=== PATIENT | female | born 1950 | race Caucasian/White ===

== ENCOUNTER 2017-12-06 09:58 | Day surgery (SDC) | payer OTHER ==
[~2017-12-06 09:58] MED LIST: ALBU90OI INH; ASPI81EC PO; ATEN100 PO; ATEN50 PO; AZIT250 PO; BENZ100A PO; CIPR500 PO; CITA20 PO; CITRACEL PO; EZET10 PO; FURO20 PO; LEVSOD50 PO; LISI10 PO; LISI20 PO; MECL25 PO; METR500 PO; OMEP20ER PO; POTCHL10ER PO; POTCHL20ER PO; Prilosec Otc20 MG PO; RANI150 PO; RXHYDACE PO; SIME80CH PO; SPIR25 PO; STOOL SOFTENER PO; TRAZ100 PO; VENL150ER PO
[2017-12-26] MEDS ORDERED: ATOR10 PO (14:23)
[2017-12-26] MEDS ORDERED: ALLEGRA ALLERG180 MG PO (14:23)
[2017-12-26] MEDS ORDERED: MIRALAX17 GM PO (14:24)
[2017-12-26] MEDS ORDERED: COQ10-VIT E 101 EACH PO (14:24)
[2017-12-26] MEDS ORDERED: CHOL10002 PO (14:24)
[2017-12-26] MEDS ORDERED: IBUP600 PO (14:25)
[2017-12-26] MEDS ORDERED: Advair Hfa 230-12 GM (14:25)
[2017-12-26] MEDS ORDERED: ALEVAZOL56.7 GM TOP (14:26)
[2017-12-26] MEDS ORDERED: Voltaren100 GM TOP (14:26)
[2017-12-26] MEDS ORDERED: Betamethasone D15 G2 TOP (14:27)
[2017-12-26] MEDS ORDERED: JOCK ITCH15 GM TOP (14:28)
== END 2017-12-06 22:46 | disposition home or self-care (01) ==
LOC: MOI MAM 09:58 → EDSTATUS 10:30 → MOI MAM 10:30
PROC: 0HBT3ZX Excision of Right Breast, Percutaneous Approach, Diagnostic (ICD-10-PCS; principal; 2017-12-06)
DX: D05.11 Intraductal carcinoma in situ of right breast (principal)
CPT/HCPCS: 19081; 88305; 88360

== ENCOUNTER 2018-01-01 08:42 | Day surgery (SDC) | payer OTHER ==
[~2018-01-01 08:42] MED LIST changes: +ALEVAZOL56.7 GM TOP; +ALLEGRA ALLERG180 MG PO; +ATOR10 PO; +Advair Hfa 230-12 GM; +Betamethasone D15 G2 TOP; +CHOL10002 PO; +COQ10-VIT E 101 EACH PO; +IBUP600 PO; +JOCK ITCH15 GM TOP; +MIRALAX17 GM PO; +Voltaren100 GM TOP
== END 2018-01-01 23:01 | disposition home or self-care (01) ==
LOC: MOI MAM 08:42
PROC: BH00ZZZ Plain Radiography of Right Breast (ICD-10-PCS; principal; 2018-01-01)
DX: C50.811 Malignant neoplasm of overlapping sites of right female breast (principal); Z17.0 Estrogen receptor positive status [ER+]
CPT/HCPCS: 19281

== ENCOUNTER 2018-01-04 05:57 | Day surgery (SDC) | payer OTHER ==
[~2018-01-04] VITALS: Ht 160 cm; Wt 70.3 kg
== END 2018-01-04 22:46 | disposition home or self-care (01) ==
LOC: ORSCMMR 05:57 → ORD 07:30 → ORSCMMR 07:30
PROVIDERS: Surgery
PROC: 0HBT0ZZ Excision of Right Breast, Open Approach (ICD-10-PCS; principal; 2018-01-04 07:30)
DX: C50.811 Malignant neoplasm of overlapping sites of right female breast (principal); D05.11 Intraductal carcinoma in situ of right breast; Z17.0 Estrogen receptor positive status [ER+]; E78.00 Pure hypercholesterolemia, unspecified; I10 Essential (primary) hypertension; E05.90 Thyrotoxicosis, unspecified without thyrotoxic crisis or storm; M79.7 Fibromyalgia; I50.9 Heart failure, unspecified; Z79.899 Other long term (current) drug therapy
CPT/HCPCS: 88307; 88341; 88342; J0690; J2250; J2405; J3010; J7120

== ENCOUNTER → 2018-12-17 | Outpatient (CLI) | payer OTHER ==
[2018-12-17 14:05] LABS: Source, Urine Clean Catch
[2018-12-17 18:00] LABS: Appearance, Urine Clear (Clear); Bilirubin, Urine Neg (Neg); Blood, Urine Neg (Neg); Color, Urine Yellow (P-Yellow); Glucose Qualitative, Urine Neg (Neg); Ketones, Urine Neg (Neg); Leukocyte Esterase, Urine Neg (Neg); Nitrite, Urine Neg (Neg); Protein, Urine Neg (Neg); Urobilinogen, Urine NORM (Normal)
== END | disposition home or self-care (01) ==
LOC: LAB SHORT 14:04 → LAB SRC 14:04
PROVIDERS: Registered Nurse
DX: R82.90 Unspecified abnormal findings in urine (principal)
CPT/HCPCS: 81003

== ENCOUNTER 2021-07-15 09:45 | Day surgery (SDC) | payer OTHER ==
[~2021-07-15] VITALS: Ht 162.6 cm; Wt 75.4 kg
[2021-07-15] MEDS ORDERED: JARDIANCE25 MG PO (10:18)
--- NOTE | 2021-07-15 10:23 | NUR ---
07/15/21 1023 Maye Iniguez CALL LIGHT WITHIN REACH. PLEDGETT WITH TETRACAINE AT 1010
== END 2021-07-15 12:20 | disposition home or self-care (01) ==
LOC: ORSCSDS 09:45
PROVIDERS: Ophthalmology
PROC: 08RK3JZ Replacement of Left Lens with Synthetic Substitute, Percutaneous Approach (ICD-10-PCS; principal; 2021-07-15 11:00)
DX: H25.12 Age-related nuclear cataract, left eye (principal); I10 Essential (primary) hypertension; E11.9 Type 2 diabetes mellitus without complications; E03.9 Hypothyroidism, unspecified; Z79.899 Other long term (current) drug therapy; Z79.84 Long term (current) use of oral hypoglycemic drugs
CPT/HCPCS: 82947; J2001; J2250; J3010; J3301; J7040; V2632

== ENCOUNTER 2021-08-12 09:45 | Day surgery (SDC) | payer OTHER ==
[~2021-08-12] VITALS: Ht 162.6 cm; Wt 75.6 kg
[~2021-08-12 09:45] MED LIST changes: +JARDIANCE25 MG PO
== END 2021-08-12 11:24 | disposition home or self-care (01) ==
LOC: ORSCSDS 09:45
PROVIDERS: Ophthalmology
PROC: 08RJ3JZ Replacement of Right Lens with Synthetic Substitute, Percutaneous Approach (ICD-10-PCS; principal; 2021-08-12 11:30)
DX: H25.11 Age-related nuclear cataract, right eye (principal); I10 Essential (primary) hypertension; E11.9 Type 2 diabetes mellitus without complications; E03.9 Hypothyroidism, unspecified; Z79.899 Other long term (current) drug therapy
CPT/HCPCS: 82947; J2001; J2250; J3010; J3301; J7040; V2632

== ENCOUNTER 2022-03-04 06:17 | Day surgery (SDC) | payer OTHER ==
[~2022-03-04] VITALS: Ht 162.6 cm; Wt 74.8 kg
[2022-03-04] MEDS ORDERED: ANASTROZOLE1 M7 (06:49)
[2022-03-04] MEDS ORDERED: ESCI20 (06:50)
[2022-03-04] MEDS ORDERED: PRAM.125 (06:50)
[2022-03-04] MEDS ORDERED: SITA100T2 (06:50)
[2022-03-04] MEDS ORDERED: ATOR10 (06:50)
[2022-03-04] MEDS ORDERED: MONT10T (06:50)
[2022-03-04] MEDS ORDERED: INDO50 (06:51)
[2022-03-04] MEDS ORDERED: DOXE10 (06:51)
--- NOTE | 2022-03-04 08:50 | NUR ---
03/04/22 0850 Paula Molina PT TRANSFERRED TO SDU ON MUNA, ROSA CALLED-AWAITING XRAY WITH PT ON MUNA.
--- NOTE | 2022-03-04 09:30 | NUR ---
03/04/22 0930 Naa Méndez HEPARIN USED TO FLUSH MEDIPORT SYSTEM.
== END 2022-03-04 10:02 | disposition home or self-care (01) ==
LOC: ORSCSDS 06:17
PROVIDERS: Surgery
PROC: B547ZZA Ultrasonography of Left Subclavian Vein, Guidance (ICD-10-PCS; principal; 2022-03-04 07:30)
PROC: 05H633Z Insertion of Infusion Device into Left Subclavian Vein, Percutaneous Approach (ICD-10-PCS; principal; 2022-03-04 07:30)
DX: D05.11 Intraductal carcinoma in situ of right breast (principal); I10 Essential (primary) hypertension; K21.9 Gastro-esophageal reflux disease without esophagitis; E11.9 Type 2 diabetes mellitus without complications; E03.9 Hypothyroidism, unspecified; Z79.899 Other long term (current) drug therapy; F32.A Depression, unspecified; M79.7 Fibromyalgia
CPT/HCPCS: 77001; 82947; A9270; C1788; J0690; J1100; J1642; J2250; J2370; J2405; J2704; J3010

== ENCOUNTER 2022-03-08 16:59 | Emergency (ER) | payer OTHER ==
[~2022-03-08] VITALS: Ht 162.6 cm; Wt 74.4 kg
[~2022-03-08 16:59] MED LIST changes: +ANASTROZOLE1 M7; +ATOR10; +DOXE10; +ESCI20; +INDO50; +MONT10T; +PRAM.125; +SITA100T2
[2022-03-08 19:13] LABS: BASOPHILS ABSOLUTE AUTO 0.02 K/mm3 (0.00-0.23); BASOPHILS PERCENT AUTO 0 % (0-2); EOSINOPHILS ABSOLUTE AUTO 0.03 K/mm3 (0.00-0.68); EOSINOPHILS PERCENT AUTO 1 % (0-6); Hematocrit 40.7 % (33.0-51.0); IMMATURE GRAN ABSOLUTE AUTO 0.05 K/mm3 (0.00-0.10); IMMATURE GRAN PERCENT AUTO 1 % (0-1); LYMPHOCYTES ABSOLUTE AUTO 0.45 K/mm3 (0.84-5.20); LYMPHOCYTES PERCENT AUTO 7 % (21-46); MONOCYTES ABSOLUTE AUTO 0.07 K/mm3 (0.16-1.47); MONOCYTES PERCENT AUTO 1 % (4-13); Mean Corpuscular HGB Conc 31.9 g/dL (31.5-36.5); Mean Corpuscular Volume 94 fL (80-100); Mean Platelet Volume 9.9 fL (9.1-12.4); NEUTROPHILS ABSOLUTE AUTO 5.87 K/mm3 (1.96-9.15); NEUTROPHILS PERCENT AUTO 90 % (41-73); Platelet Count 198 K/mm3 (150-400); RDW Coefficient Variation 13.9 % (11.7-14.2); Red Blood Cell Count 4.34 M/mm3 (3.80-5.20); White Blood Cell Count 6.49 K/mm3 (4.00-11.30)
[2022-03-08 19:35] LABS: Bun/Creatinine Ratio 23.9 (12.0-20.0); Calcium, Blood 8.1 mg/dL (8.5-10.1); Creatinine, Blood 0.84 mg/dL (0.40-1.00); Potassium, Blood 4.9 mmol/L (3.5-5.5)
== END 2022-03-08 21:10 | disposition home or self-care (01) ==
LOC: ER 16:59
PROVIDERS: Student in an Organized Health Care Education/Training Program
DX: T43.591A Poisoning by other antipsychotics and neuroleptics, accidental (unintentional), initial encounter (principal); R09.02 Hypoxemia; I11.0 Hypertensive heart disease with heart failure; I50.9 Heart failure, unspecified; E78.5 Hyperlipidemia, unspecified; K21.9 Gastro-esophageal reflux disease without esophagitis; M19.90 Unspecified osteoarthritis, unspecified site; Z79.899 Other long term (current) drug therapy; Z88.5 Allergy status to narcotic agent; Z88.7 Allergy status to serum and vaccine; Z88.8 Allergy status to other drugs, medicaments and biological substances; Z91.011 Allergy to milk products; Y92.238 Other place in hospital as the place of occurrence of the external cause
CPT/HCPCS: 71046; 80048; 83735; 83880; 84484; 85025; 93005; 93010; J1642; J1940

== ENCOUNTER 2022-03-15 14:08 | Inpatient (IN) | payer OTHER ==
[~2022-03-15] VITALS: Ht 162.6 cm; Wt 73.9 kg
[~2022-03-15 14:08] MED LIST changes: +EUTHYROX50 MCG; -PRAM.125; +PRAM.125 PO; -Vitamin D1000 UNI1 PO
[2022-03-15 18:21] LABS: Source, Urine Clean Catch
[2022-03-15 18:24] LABS: Appearance, Urine Cloudy (Clear); Bilirubin, Urine Neg (Neg); Blood, Urine 3+ (Neg); Color, Urine Yellow (P-Yellow); Glucose Qualitative, Urine 3+ (Neg); Ketones, Urine Neg (Neg); Leukocyte Esterase, Urine 3+ (Neg); Nitrite, Urine Neg (Neg); Protein, Urine 2+ (Neg); Urobilinogen, Urine NORM (Normal)
[2022-03-15 18:43] LABS: Red Blood Cells, Urine TNTC /hpf (0-2); White Blood Cells, Urine TNTC /hpf (0-5)
[2022-03-15 18:44] LABS: Bacteria Many /hpf; Hyaline Casts 0-2 /lpf (0-2); Squamous Epithelial Cells Few /hpf (Few); WBC Cast 0-2 /lpf (0)
--- NOTE | 2022-03-15 22:01 | NUR ---
CARE ASSUMPTION: ASSUMED CARE FROM TENZIN ED RN AT 2119. PATIENT AMBULATED TO BED, A&0 X4, BP 101/52 (64), O2 96% RA. ORIENTED TO UNIT, CALLED DIL, WAITING ON MD ORDERS.
--- NOTE | 2022-03-15 22:19 | NUR ---
CARE ASSUMPTION: ASSUMED CARE FROM KODY DOWNEY AND ANTON, LEAD BASED PAINT TECHNICIAN. PATIENT A&O, DENIES CHEST PAIN OR SOB, TALKATIVE AND PLEASANT. CALL LIGHT IN REACH.
[2022-03-15] MEDS ORDERED: Vitamin D1000 UNI1 PO (23:08)
[2022-03-16 04:16] LABS: Hematocrit 30.3 % (33.0-51.0); Hemoglobin 9.7 g/dL (11.5-16.0); Mean Corpuscular HGB 29.8 pg (26.0-34.0); Mean Corpuscular Volume 93 fL (80-100); Mean Platelet Volume 10.8 fL (9.1-12.4); Platelet Count 130 K/mm3 (150-400); RDW Standard Deviation 48.8 fL (35.1-46.3); Red Blood Cell Count 3.25 M/mm3 (3.80-5.20)
[2022-03-16 04:36] LABS: Albumin, Blood 2.4 g/dL (3.4-5.0); Albumin/Globulin Ratio 0.8 (0.8-1.8); Bilirubin, Total 0.4 mg/dL (0.1-1.0); Bun/Creatinine Ratio 25.1 (12.0-20.0); Calcium, Blood 7.5 mg/dL (8.5-10.1); Creatinine, Blood 2.07 mg/dL (0.40-1.00); Potassium, Blood 4.4 mmol/L (3.5-5.5); Total Protein, Blood 5.4 g/dL (6.4-8.2)
[2022-03-16 04:37] LABS: BAND PERCENT MAN 18 % (0-8); BASOPHILS PERCENT MAN 0 % (0-2); EOSINOPHILS PERCENT MAN 0 % (0-6); LYMPHOCYTES ABSOLUTE MAN 0.73 K/mm3 (0.84-5.20); LYMPHOCYTES PERCENT MAN 4 % (21-46); MONOCYTES ABSOLUTE MAN 0.73 K/mm3 (0.16-1.47); MONOCYTES PERCENT MAN 4 % (4-13); NEUTROPHILS ABSOLUTE MAN 16.92 K/mm3 (1.96-9.15); SEG NEUTROPHILS PERCENT MAN 74 % (41-73); TOTAL CELLS COUNTED 100
--- NOTE | 2022-03-16 06:40 | NUR ---
SHIFT SUMMARY: PATIENT HYPOTENSIVE, OTHER VSS ON RA. DIARRHEA UPON ADMIT, NONE SINCE ~0100. MEDICATED PER EMAR. MEDIPORT ACCESSED - DRAWS AND FLUSHES. PATIENT A&O X4, USES CALL LIGHT APPROPRIATELY. PATIENT'S SPOUSE IN ED FOR HIP PAIN FOLLOWING FALL. CALL LIGHT IN PLACE, WILL REPORT TO ONCOMING RN.
--- NOTE | 2022-03-16 06:45 | NUR ---
CALLED MD FOR 75/41 (52) BP FOLLOWING ADMINISTRATION OF 500 ML BOLUS. RECEIVED NEW ORDERS FOR ADDITIONAL 500 ML BOLUS.
--- NOTE | 2022-03-16 16:34 | NUR ---
END OF SHIFT SUMMARY: PATIENT HAS BEEN AFEBRILE, BLOOD PRESSURE HAS BEEN MAP>60, FLUIDS INFUSING, RECIEVED A DOSE OF VANCO ONE TIME, AND CEFIPIME. PATIENT TOLERATED WITH NO ADVERSE REACTIONS. PATIENT STILL NEEDS TO HAVE STOOL SAMPLE COLLECTED SHE HAS NOT HAD ANOTHER BM SINCE THIS AM. PATIENT HAS BEEN SR WITH IMPROVING WEAKNESS AND STRENGTH/GAIT. PATIENT HAS TELEMETRY ON. ALERT AND ORIENTED, EDUCATED MULTIPLE TIMES ABOUT DISEASE PROCESS, ACUTE ON CHRONIC CONDITIONS, MEDICATIONS. UPDATE GIVEN TO . CRITICAL OF GRAM + COCCI IN CHAINS WAS REPORTED TO HOSPITALIST TIMELY. DEEP BREATHING AND COUGH EXERCISES ENCOURAGED. MEDIPORT ACCESS FLUSHES WITH NO RESISTANCE, DID NOT TRY TO DRAW AT THIS TIME. WILL CONTINUE TO MONITOR. NO CONCERNS QUESTIONS OR COMMENTS FROM PATIENT OR THIS PHOTO MASK PROCESSOR.
--- NOTE | 2022-03-16 22:33 | NUR ---
Assumed care of pt at 1900. A/Ox4. Denies any pain, CP/pressure. SBP in low 100's, however MAP in 70-80's. Maintains above 95% on RA. LS Exp wheeze on top and dim at bases bl. Patient reports nonproductive cough. SR on tele 80's with faint +1 radial/pedal pulses. L top of foot has some non-pitting edema. Hypoactive bowel tones. Cdiff r/o d/c per charge, as patient has not had repeat BM since being medicated with PRN and it has been over 24hrs.
--- NOTE | 2022-03-17 05:45 | NUR ---
SHIFT SUMMARY No acute events overnight. Patient was able to sleep for a majority of the night. BP remained stable with MAP>65. Will report to dayshift RN.
[2022-03-17 05:56] LABS: Hematocrit 30.7 % (33.0-51.0); Hemoglobin 9.7 g/dL (11.5-16.0); Mean Corpuscular HGB 29.9 pg (26.0-34.0); Mean Corpuscular HGB Conc 31.6 g/dL (31.5-36.5); Mean Corpuscular Volume 95 fL (80-100); Mean Platelet Volume 11.2 fL (9.1-12.4); NRBC ABSOLUTE 0.03 K/mm3 (0.00-0.02); NRBC Auto 0.2 /100 WBC (0.0-0.2); Platelet Count 125 K/mm3 (150-400); RDW Coefficient Variation 14.2 % (11.7-14.2); RDW Standard Deviation 49.2 fL (35.1-46.3); Red Blood Cell Count 3.24 M/mm3 (3.80-5.20)
[2022-03-17 06:21] LABS: Alanine Aminotransfer (ALT/SGP 25 U/L (12-78); Albumin, Blood 2.3 g/dL (3.4-5.0); Albumin/Globulin Ratio 0.8 (0.8-1.8); Alk Phos 114 U/L (50-136); Anion Gap 7 mmol/L (6-16); Aspartate Aminotrans (AST/SGOT 13 U/L (12-37); Bilirubin, Total 0.2 mg/dL (0.1-1.0); Blood Urea Nitrogen 19 mg/dL (8-24); Bun/Creatinine Ratio 19.5 (12.0-20.0); CO2, Blood 20 mmol/L (21-32); Chloride, Blood 119 mmol/L (98-108); Creatinine, Blood 0.97 mg/dL (0.40-1.00); Ferritin, Serum 1101 ng/mL (8-252); Glomerular Filtration Rate 62 (60-); Glucose, Blood 112 mg/dL (70-99); Iron Serum 48 ug/dL (50-170); Magnesium, Blood 2.1 mg/dL (1.6-2.4); Percent Saturation 33.6 % (15.0-50.0); Sodium, Blood 146 mmol/L (136-145); Total Iron Binding Capacity 143 ug/dL (250-450); Total Protein, Blood 5.3 g/dL (6.4-8.2); Vancomycin, Random 9.2 ug/mL
--- NOTE | 2022-03-17 07:30 | NUR ---
ASSUMED CARE: PT APPEARS TO BE RESTING IN BED AT TIME OF BEDSIDE REPORT. PT SATTING >95% ON RA, SINUS RHYTHM IN 90'S, AND SBP IN 140'S. 1/2 NS RUNNING THROUGH MEDIPORT IN L CHEST WALL AT 100ML/HR TKO. NO ACUTE NEEDS/DISTRESS AT THIS TIME, CALL LIGHT WITHIN REACH
--- NOTE | 2022-03-17 10:31 | NUR ---
REVIEWED STOGIE PACKER'S HEAD TO TOE ASSESSMENT AND AGREE
--- NOTE | 2022-03-17 13:07 | NUR ---
Spiritual care visit conducted. Pt is lying in bed and alert. Pt tells me about her medical history, her L[employer] Day beliefs and it's origin and her family history. Pt explains about how her rosita in God and her family are guevara ingredients in her ability to stay positive and hopeful, yet allow for room to be vulnerable and cry when needed. The day with cancer and and other medical conditions has been extreme for her and she is tearful as she talks about it. She is easily encouraged by scripture, gentle drug and alcohol counselor and prayer. We also discussed ways of coping with Chemotherapy and family emotions. Pt shows signs of catharsis and renewed hope. I will continue to remain available to patient and family.
--- NOTE | 2022-03-17 17:52 | NUR ---
SHIFT SUMMARY: PT IS A&OX4 AND CALLS APPROPRIATELY FOR NEEDS. PT HAS SUSTAINED >95% O2 ON RA, SINUS RHYTHM IN 80'S, AND SBP IN 120'S. PT HAS BEEN RESTING THROUGHOUT THE SHIFT, SWITCHING BETWEEN THE BED AND RECLINER FOR COMFORT. ALL MEDICATION TOLERATED WELL AND NO LEAKING/IRRITATION AT MEDIPORT SITE. PT STATES THAT HER APPETITE HAS IMPROVED, BUT IS STILL MINIMAL. NO ACUTE NEEDS/DISTRESS AT THIS TIME, CALL LIGHT WITHIN REACH.
--- NOTE | 2022-03-17 22:31 | NUR ---
TRANSFER NOTE REPORT FROM CHETAN DIRECTOR PUBLIC SERVICE. PT TO FLOOR BY PCU BED AND AMBULATES TO MEDICAL BED SBA. PT ORIENTED TO ROOM AND CALL LIGHT. CALL LIGHT IN REACH. BED IN LOWEST POSITION.
--- NOTE | 2022-03-18 04:40 | NUR ---
WELDER PLASTIC SUMMARY ADMITTED FOR SEPSIS, UTI, AND ACUTE RENAL FAILURE. THE PATIENT IS A FULL CODE. SHE IS ALERT AND ORIENTED X3, PLEASANT AND COOPERATIVE WITH CARE. SHE IS RECEIVING 1/2 NS AT 100 ML/HR DUE TO PT RELUCTANCE TO INTAKE ORAL FLUIDS SECONDARY TO NAUSEA R/T HER FIRST CHEMO TREATMENT A WEEK AGO. SHE IS A SBA TO THE BR DUE TO LINES. NO COMPLAINTS OF PAIN. PT IS CURRENTLY RESTING.
[2022-03-18 05:36] LABS: Hemoglobin 9.7 g/dL (11.5-16.0); Mean Corpuscular HGB 29.5 pg (26.0-34.0); Mean Corpuscular HGB Conc 31.3 g/dL (31.5-36.5); Mean Corpuscular Volume 94 fL (80-100); Mean Platelet Volume 10.8 fL (9.1-12.4); NRBC ABSOLUTE 0.05 K/mm3 (0.00-0.02); NRBC Auto 0.3 /100 WBC (0.0-0.2); Platelet Count 129 K/mm3 (150-400); RDW Coefficient Variation 14.1 % (11.7-14.2); RDW Standard Deviation 48.1 fL (35.1-46.3); Red Blood Cell Count 3.29 M/mm3 (3.80-5.20); White Blood Cell Count 17.32 K/mm3 (4.00-11.30)
[2022-03-18 06:04] LABS: Albumin, Blood 2.4 g/dL (3.4-5.0); Albumin/Globulin Ratio 0.8 (0.8-1.8); Bilirubin, Total 0.3 mg/dL (0.1-1.0); Bun/Creatinine Ratio 9.2 (12.0-20.0); Calcium, Blood 7.3 mg/dL (8.5-10.1); Creatinine, Blood 0.76 mg/dL (0.40-1.00); Magnesium, Blood 1.7 mg/dL (1.6-2.4); Potassium, Blood 3.8 mmol/L (3.5-5.5); Total Protein, Blood 5.4 g/dL (6.4-8.2)
[2022-03-18 10:31] LABS: Vancomycin, Trough 10.1 ug/mL (5.0-10.0)
--- NOTE | 2022-03-18 11:26 | NUR ---
AM NOTE. VANCOMYCIN DISCONTINUED AFTER INFUSING FOR 10 MINUTES. TROUGH WAS DRAWN AND ABX STARTED AT 1115, DISCONTINUED AT 1125. PHARMACIST CALLED TO VERIFY. PT HAS POOR APPETITE, BUT SAID THAT SHE CAN TASTE A LITTLE MORE, SHE TOOK A FEW BITES OF BREAKFAST. NO NAUSEA. FORMED BM THIS AM. S/B LUMPIA WRAPPER MAKER - NO LACTOSE ALLERGY PER LUMPIA WRAPPER MAKER. LEFT EYE AREA REDDENED, NOT SEEN BY MD THIS YET. NO VISUAL PROBELMS PER PT. BED LOW, CALL LIGHT IN REACH.
--- NOTE | 2022-03-18 19:07 | NUR ---
SHIFT SUMMARY MS SCHAFFER IS ORIENTATED X4. SHE HAS NOT HAD ANY NAUSEA TODAY. HER SENSE OF TASTE HAS IMPROVED AND HER APPETITE HAS IMPROVED, ABLE TO EAT MORE TODAY. IVF CONTINUE TO LEFT CHEST MEDIPORT. STAND-BY ASSIST WITH STEADY GAIT UP TO THE BATHROOM. SHE DENIES ANY PAIN. EYE DROPS STARTED FOR LEFT EYE REDNESS. BED LOW, CALL LIGHT IN REACH.
--- NOTE | 2022-03-19 05:40 | NUR ---
SHIFT SUMMARY AOX4. REPORTED NAUSEA 1X, MEDICATED c ZOFRAN & PT STATED RELIEF. NO EMESIS. TOLERATED 1/2 SANDWHICH FOR SNACK W/O ANY N/V. STATES APPETITE IS COMING BACK. HAD BM THIS SHIFT. ACTIVE BT A4Q. VSS. TELE NSR @73. DENIES ANY PAIN. CALL LIGHT IN REACH & PT ABLE TO MAKE NEEDS KNOWN. WILL MONITOR.
[2022-03-19 10:30] LABS: Hematocrit 31.6 % (33.0-51.0); Mean Corpuscular HGB 29.8 pg (26.0-34.0); Mean Corpuscular HGB Conc 31.6 g/dL (31.5-36.5); Mean Corpuscular Volume 94 fL (80-100); NRBC ABSOLUTE 0.06 K/mm3 (0.00-0.02); NRBC Auto 0.4 /100 WBC (0.0-0.2); Platelet Count 108 K/mm3 (150-400); RDW Coefficient Variation 14.4 % (11.7-14.2); RDW Standard Deviation 49.2 fL (35.1-46.3); Red Blood Cell Count 3.36 M/mm3 (3.80-5.20); White Blood Cell Count 14.23 K/mm3 (4.00-11.30)
[2022-03-19 10:58] LABS: Albumin, Blood 2.6 g/dL (3.4-5.0); Albumin/Globulin Ratio 0.8 (0.8-1.8); Bilirubin, Total 0.3 mg/dL (0.1-1.0); Bun/Creatinine Ratio 7.3 (12.0-20.0); Calcium, Blood 7.5 mg/dL (8.5-10.1); Creatinine, Blood 0.82 mg/dL (0.40-1.00); Globulin, Blood 3.2 g/dL (2.2-4.0); Potassium, Blood 3.6 mmol/L (3.5-5.5); Total Protein, Blood 5.8 g/dL (6.4-8.2)
--- NOTE | 2022-03-19 18:47 | NUR ---
SHIFT SUMMARY MS SCHAFFER SAID THAT SHE IS FEELING MUCH BETTER TODAY. SHE HAS HER APPETITE AND HAS BEEN ABLE TO EAT WELL. NO NAUSEA. SHE DID C/O EYE PAIN THIS MORNING, BUT SAID THAT IT FEELS IMPROVED, AND REDNESS LOOKS DECREASED FROM YESTERDAY. IVF WERE DISCONTINUED AND SHE IS DRINKING FLUIDS. TELEMETRY DISCONTINUED TODAY. UP TO BATHROOM, STEADY GAIT. BED LOW, CALL LIGHT IN REACH.
--- NOTE | 2022-03-20 05:23 | NUR ---
A & OX4. V/S WNL. REGULAR DIET. INDEPEDANT. MEDIPORT TO R) UPPER CHEST. PT DENIED ANY SOB OR CP. PT VOIDED W/O DIFFICULTY. NO BM THIS SHIFT. WILL CONTINUE TO MONITOR.
[2022-03-20 05:29] LABS: Hematocrit 29.6 % (33.0-51.0); Hemoglobin 9.4 g/dL (11.5-16.0); Mean Corpuscular HGB Conc 31.8 g/dL (31.5-36.5); Mean Corpuscular Volume 95 fL (80-100); Mean Platelet Volume 10.4 fL (9.1-12.4); NRBC ABSOLUTE 0.06 K/mm3 (0.00-0.02); NRBC Auto 0.4 /100 WBC (0.0-0.2); Platelet Count 102 K/mm3 (150-400); RDW Coefficient Variation 14.4 % (11.7-14.2); RDW Standard Deviation 50.1 fL (35.1-46.3); Red Blood Cell Count 3.13 M/mm3 (3.80-5.20); White Blood Cell Count 14.65 K/mm3 (4.00-11.30)
[2022-03-20 05:54] LABS: Albumin, Blood 2.5 g/dL (3.4-5.0); Albumin/Globulin Ratio 0.8 (0.8-1.8); Bilirubin, Total 0.3 mg/dL (0.1-1.0); Bun/Creatinine Ratio 6.3 (12.0-20.0); Calcium, Blood 7.4 mg/dL (8.5-10.1); Creatinine, Blood 0.79 mg/dL (0.40-1.00); Potassium, Blood 3.6 mmol/L (3.5-5.5); Total Protein, Blood 5.5 g/dL (6.4-8.2)
--- NOTE | 2022-03-20 10:43 | NUR ---
AM NOTE MS SCHAFFER IS A&OX4. NO N/V THIS AM, HAS AN APPETITE AND ATE HER BREAKFAST. HER LEFT EYE IS STILL BOTHERING HER A LITTLE BIT, BUT SHE SAID IT HAS IMPROVED, AND REDNESS HAS DECEREASED. NO OTHER C/O DISCOMFORT. BED LOW, CALL LIGHT IN REACH.
[2022-03-20] MEDS ORDERED: ALOGLIPTIN6.25 M1 PO (13:56)
[2022-03-20] MEDS ORDERED: CIPR500 PO (14:05)
[2022-03-20] MEDS ORDERED: Ciprofloxacin2.5 ML LEFTEYE (14:05)
[2022-03-20] MEDS ORDERED: PRED20 PO ×2 (14:06→14:07)
--- NOTE | 2022-03-20 14:38 | NUR ---
DISCHARGE WRITTEN AND VERBAL DISCHARGE INSTRUCTIONS GIVEN TO MS SCHAFFER AND HER . MS SCHAFFER HAS A GOOD UNDERSTANDING OF HER MEDICATIONS, QUESTIONS WERE ANSWERED AND SHE VERBALISED FULL UNDERSTANDING OF HER DISCHARGE INSTRUCTIONS. MEDIPORT FLUSHED WITH SALINE AND HEPARIN AND DEACCESSED. HER IS DRIVING HER HOME. WHEELCHAIR ESCORT TO MEET HER FOR DISCHARGE PENDING.
== END 2022-03-20 14:50 | disposition home or self-care (01) | DRG 872 ==
LOC: ER 14:08 → PCU 14:09 → MEDS 03-17 22:26
PROVIDERS: Internal Medicine; Physician Assistant; ADMIT Internal Medicine
DX: A40.8 Other streptococcal sepsis (principal); N39.0 Urinary tract infection, site not specified; N17.9 Acute kidney failure, unspecified; I50.32 Chronic diastolic (congestive) heart failure; M19.90 Unspecified osteoarthritis, unspecified site; M79.7 Fibromyalgia; I11.0 Hypertensive heart disease with heart failure; C50.911 Malignant neoplasm of unspecified site of right female breast; K52.9 Noninfective gastroenteritis and colitis, unspecified; E86.0 Dehydration; E78.5 Hyperlipidemia, unspecified; R65.20 Severe sepsis without septic shock; B96.20 Unspecified Escherichia coli [E. coli] as the cause of diseases classified elsewhere; Z90.710 Acquired absence of both cervix and uterus; Z98.890 Other specified postprocedural states; Z88.2 Allergy status to sulfonamides; Z91.011 Allergy to milk products; Z88.6 Allergy status to analgesic agent; Z88.7 Allergy status to serum and vaccine; Z88.8 Allergy status to other drugs, medicaments and biological substances; Z79.899 Other long term (current) drug therapy
CPT/HCPCS: 36415; 76770; 80053; 80202; 81001; 82728; 82947; 83540; 83550; 83605; 83735; 85025; 85027; 87040; 87077; 87086; 87186; 94760; 96360; 96361; 99284-25; A9270; J0692; J0696; J1642; J1644; J2405; J3370; J7030; J7040; J7060

== ENCOUNTER → 2022-03-15 | Outpatient (CLI) | payer OTHER ==
[~2022-03-15] MED LIST changes: +Vitamin D1000 UNI1 PO
[2022-03-15 13:31] LABS: Albumin/Globulin Ratio 0.8 (0.8-1.8); Bilirubin, Total 0.5 mg/dL (0.1-1.0); Calcium, Blood 8.8 mg/dL (8.5-10.1); Creatinine, Blood 3.67 mg/dL (0.40-1.00); Globulin, Blood 3.7 g/dL (2.2-4.0); Potassium, Blood 4.9 mmol/L (3.5-5.5); Total Protein, Blood 6.7 g/dL (6.4-8.2)
[2022-03-15 13:49] LABS: Hematocrit 37.3 % (33.0-51.0); Mean Corpuscular HGB 29.8 pg (26.0-34.0); Mean Corpuscular HGB Conc 32.2 g/dL (31.5-36.5); Mean Corpuscular Volume 93 fL (80-100); Platelet Count 144 K/mm3 (150-400); RDW Standard Deviation 47.8 fL (35.1-46.3); Red Blood Cell Count 4.03 M/mm3 (3.80-5.20); White Blood Cell Count 16.12 K/mm3 (4.00-11.30)
[2022-03-15 14:54] LABS: BAND PERCENT MAN 8 % (0-8); BASOPHILS PERCENT MAN 0 % (0-2); EOSINOPHILS PERCENT MAN 0 % (0-6); LYMPHOCYTES ABSOLUTE MAN 1.12 K/mm3 (0.84-5.20); LYMPHOCYTES PERCENT MAN 7 % (21-46); MONOCYTES PERCENT MAN 5 % (4-13); MYELOCYTE ABSOLUTE MAN 0.48 K/mm3 (0.00-0.00); MYELOCYTE PERCENT MAN 3 % (0-0); SEG NEUTROPHILS PERCENT MAN 77 % (41-73); TOTAL CELLS COUNTED 100
== END ==
LOC: LAB SHORT 13:02
PROVIDERS: Internal Medicine Hematology & Oncology
DX: C50.919 Malignant neoplasm of unspecified site of unspecified female breast (principal)
CPT/HCPCS: 80053; 85025

== ENCOUNTER 2022-04-27 17:56 | Emergency (ER) | payer OTHER ==
[~2022-04-27] VITALS: Ht 162.6 cm; Wt 72.1 kg
[~2022-04-27 17:56] MED LIST changes: +ALOGLIPTIN6.25 M1 PO; +Ciprofloxacin2.5 ML LEFTEYE; +PRED20 PO; +Vitamin D1000 UNI1 PO
[2022-04-27] MEDS ORDERED: HYDR1TAB94 PO (19:39)
== END 2022-04-27 19:54 | disposition home or self-care (01) ==
LOC: ER 17:56
DX: S63.502A Unspecified sprain of left wrist, initial encounter (principal); I50.9 Heart failure, unspecified; Z88.5 Allergy status to narcotic agent; Z88.2 Allergy status to sulfonamides; Z88.7 Allergy status to serum and vaccine; Z88.8 Allergy status to other drugs, medicaments and biological substances; Z91.011 Allergy to milk products; Z79.899 Other long term (current) drug therapy; Z79.52 Long term (current) use of systemic steroids; V43.52XA Car driver injured in collision with other type car in traffic accident, initial encounter
CPT/HCPCS: 29125; 73110; 99284-25; A9270

== ENCOUNTER 2022-08-25 07:32 | Day surgery (SDC) | payer OTHER ==
[~2022-08-25] VITALS: Ht 160 cm; Wt 60.4 kg
[~2022-08-25 07:32] MED LIST changes: -ANASTROZOLE1 M7; +ANASTROZOLE1 M7 PO; -ATOR10; -DOXE10; +DOXE10 PO; -ESCI20; +ESCI20 PO; -EUTHYROX50 MCG; +EUTHYROX50 MCG PO; +HYDR1TAB94 PO; +INDO50 PO; +JARDIANCE10 MG PO; -MONT10T; +MONT10T PO; -Prilosec Otc20 MG PO; +SITA100T2 PO
--- NOTE | 2022-08-25 10:42 | NUR ---
Ambulatory in Day Surgery History, Chart, Medications and Allergies reviewed before start of procedure.Pre-Op teaching done. Pt verbalizes understanding.
[2022-08-25] MEDS ORDERED: ALLO100 PO ×2 (10:56→10:57)
[2022-08-25] MEDS ORDERED: ZYRTEC10 M2 PO (10:58)
[2022-08-25] MEDS ORDERED: LEVSOD75 PO (11:00)
[2022-08-25] MEDS ORDERED: OMEP20ER PO (11:01)
[2022-08-25] MEDS ORDERED: SPIR50 PO (11:02)
[2022-08-25] MEDS ORDERED: TELM20 PO (11:02)
[2022-08-25] MEDS ORDERED: TORS10 PO (11:03)
--- NOTE | 2022-08-25 15:27 | NUR ---
DR RAY RECENTLY NOTIFIED OF PT REQUESTING TO BE ABLE TO STAY IN HOSPITAL OVERNIGHT. DR RAY REPORTED THAT HE WILL PLACE ORDERS. NURSING REAL ESTATE INSTRUCTOR OFFICE NOTIFIED, SECOND FLOOR STAFF NOTIFIED. PT'S DRESSINGS C/D/I. JPX2 RECOMPRESSED. PT SHOWN HOW TO COMPRESS TANIA DRAIN. PT TOLERATING DIET. PT DENIES N/V,SOB. PT REPORTS PAIN GETTING BETTER AT THIS TIME.
--- NOTE | 2022-08-25 16:09 | NUR ---
REPORT GIVEN TO Khris GATES WHO WILL BE ASSUMING CARE OF PT. PT TO BE TRANSFERRED TO ROOM 209.
--- NOTE | 2022-08-25 16:31 | NUR ---
PT ARRIVED TO UNIT AT APROX 1615 FROM DAY SURGERY. INCISION SITES TO BILATERAL CHEST WALL AND L AXILLARY COVERED W/GAUZE C/D/I. BINDER IN PLACE. PT DENIES PAIN. TOLERATING CLEAR LIQUIDS, WILL ADVANCE TOLERATED. GRANDAUGHTER AT BEDSIDE.
--- NOTE | 2022-08-26 06:14 | NUR ---
SHIFT SUMMARY POD1 BILATERAL MASTECTOMY. NO ACUTE CHANGES OVERNIGHT. PT REPORTS MODERATE PAIN ON BILATERAL CHEST AREA. PT HAS GAUZE AND CHEST BINDER, CDI. PAIN MANAGED WITH NORCO (2TAB) AND TORADOL WITH SOME RELIEF. PT AMBULATES 1SBA IN THE BATHROOM, VOIDING WITHOUT DIFFICULTY. ADEQUATE URINE OUTPUT. TOLERATING PO INTAKE, DENIES N/V. VSS. DENIES DIZZINES/ LIGHTHEADEDNESS. MILD SWELLING ON BILATERAL HANDS AND FEET. SALINE LOCKED OVERNIGHT. CALL LIGHT WITHIN REACH.
[2022-08-26] MEDS ORDERED: HYDR1TAB94 PO (11:02)
--- NOTE | 2022-08-26 16:42 | NUR ---
SHIFT SUMMARY POD 1 MASTECTOMY PT PAIN MANAGED PER EMAR, PT AMBULATING WELL, IND IN ROOM. NO WEAKNESS NOTED. DRESSINGS REMAIN CDI. DRY DRAINAGE AROUND R TANIA DRAIN INSERTION SITE. L TANIA DRAIN SITE CDI. PT TOLERATING PO WELL. PT PLANS TO DISCHARGE HOME TOMORROW, TOOK PRESCRIPTION TO [employer] TODAY IN PREPARTION FOR DISCHARGE AT PATIENTS REQUEST.
--- NOTE | 2022-08-27 12:30 | NUR ---
SHIFT ASSESSMENT ASSESSMENT DOCUMENTED BY ELEANOR NOIREGA STUDENT NURSE WAS REVIEWED, DOCUMENTATION APPEARS ACCURATE.
--- NOTE | 2022-08-27 14:25 | NUR ---
DISCHARGE PATIENT LEFT AT APPROXIMATELY 13:45. TANIA DRAINS WERE EMPTIED PRIOR TO DEPARTURE AND PT WAS PROVIDED INSTRUCTION ON HOW TO CARE FOR THEM. SHE RESTED COMFORTABLY FOR MY SHIFT, PAIN WAS MANAGED PER EMR. VSS, PAIN WAS TOLERABLE AT D/C, PATIENT INDEPENDENTLY AMBULATED IN ROOM, NEEDED SOME ASSISTANCE WITH DRESSING HERSELF. DISCHARGE TEACHING WAS PERFORMED BY KYMBERLY SEPULVEDA RN. PATIENT EXPRESSED UNDERSTANDING AND HAD NO QUESTIONS OR CONCERNS. PATIENT LEFT BY WHEEL CHAIR AND WAS DRIVEN HOME BY .
== END 2022-08-27 13:45 | disposition home or self-care (01) ==
LOC: SURS 07:32 → NM 07:32 → ORSCMMR 07:34 → NM 08:30 → SURS 16:09 → NM 08-27 13:45
PROVIDERS: Surgery
PROC: 0HTV0ZZ Resection of Bilateral Breast, Open Approach (ICD-10-PCS; principal; 2022-08-25 09:30)
DX: C50.411 Malignant neoplasm of upper-outer quadrant of right female breast (principal); Z17.1 Estrogen receptor negative status [ER-]; Z40.01 Encounter for prophylactic removal of breast; I50.9 Heart failure, unspecified; E11.9 Type 2 diabetes mellitus without complications; K21.9 Gastro-esophageal reflux disease without esophagitis; I11.0 Hypertensive heart disease with heart failure; Z88.5 Allergy status to narcotic agent; Z88.2 Allergy status to sulfonamides; Z88.8 Allergy status to other drugs, medicaments and biological substances
CPT/HCPCS: 38792; 82947; A9270; A9520; J0690; J1100; J1885; J2250; J2370; J2405; J2704; J2795; J3010; J7120; Q9968

== ENCOUNTER → 2023-01-26 | Outpatient (CLI) | payer OTHER ==
[~2023-01-26] MED LIST changes: +ALLO100 PO; +LEVSOD75 PO; +SPIR50 PO; +TELM20 PO; +TORS10 PO; +ZYRTEC10 M2 PO
== END | disposition home or self-care (01) ==
LOC: LAB 11:58 → LAB SHORT 11:58
DX: C50.919 Malignant neoplasm of unspecified site of unspecified female breast (principal)
CPT/HCPCS: 83735

== ENCOUNTER 2023-05-25 08:07 | Day surgery (SDC) | payer OTHER | END 2023-05-25 13:49 | disposition home or self-care (01) | LOC: ORSCMMR 08:07 | PROC: 0JB60ZZ Excision of Chest Subcutaneous Tissue and Fascia, Open Approach (ICD-10-PCS; principal; 2023-05-25) | PROC: 0JPT0WZ Removal of Totally Implantable Vascular Access Device from Trunk Subcutaneous Tissue and Fascia, Open Approach (ICD-10-PCS; principal; 2023-05-25) | DX: Z85.3 Personal history of malignant neoplasm of breast (principal); Z45.2 Encounter for adjustment and management of vascular access device; D17.22 Benign lipomatous neoplasm of skin and subcutaneous tissue of left arm; E11.9 Type 2 diabetes mellitus without complications; I50.9 Heart failure, unspecified; F32.A Depression, unspecified; M79.7 Fibromyalgia; I10 Essential (primary) hypertension; E78.00 Pure hypercholesterolemia, unspecified; E05.90 Thyrotoxicosis, unspecified without thyrotoxic crisis or storm; Z79.899 Other long term (current) drug therapy ==

== ENCOUNTER 2023-07-24 18:03 | Emergency (ER) | payer OTHER ==
[~2023-07-24] VITALS: Ht 162.6 cm; Wt 68.0 kg
[2023-07-24 18:15] VITALS: BP 97/64
== END 2023-07-24 19:18 | disposition home or self-care (01) ==
LOC: ER 18:03
DX: U07.1 COVID-19 (principal); J06.9 Acute upper respiratory infection, unspecified; I50.9 Heart failure, unspecified; Z88.7 Allergy status to serum and vaccine; Z88.2 Allergy status to sulfonamides; Z88.5 Allergy status to narcotic agent; Z91.011 Allergy to milk products; Z79.899 Other long term (current) drug therapy
CPT/HCPCS: 71046; 99283-25

== ENCOUNTER → 2023-08-26 | Outpatient (CLI) | payer OTHER | LOC: LAB SHORT 12:03 → LAB 12:03 | DX: R30.0 Dysuria (principal) | CPT/HCPCS: 87077; 87086; 87186 ==

== ENCOUNTER → 2024-05-09 | Outpatient (CLI) | payer OTHER | END | disposition home or self-care (01) | LOC: LAB SHORT 12:47 → LAB 12:47 | DX: K21.9 Gastro-esophageal reflux disease without esophagitis (principal); R13.14 Dysphagia, pharyngoesophageal phase | CPT/HCPCS: 87338 ==

== ENCOUNTER 2024-09-28 17:16 | Emergency (ER) | payer OTHER ==
[~2024-09-28] VITALS: Ht 160 cm; Wt 72.6 kg
[2024-09-28 18:03] LABS: BASOPHILS ABSOLUTE AUTO 0.07 K/mm3 (0.00-0.23); BASOPHILS PERCENT AUTO 1 % (0-2); EOSINOPHILS ABSOLUTE AUTO 0.25 K/mm3 (0.00-0.68); EOSINOPHILS PERCENT AUTO 4 % (0-6); Hematocrit 43.1 % (33.0-51.0); Hemoglobin 13.9 g/dL (11.5-16.0); IMMATURE GRAN ABSOLUTE AUTO 0.01 K/mm3 (0.00-0.10); IMMATURE GRAN PERCENT AUTO 0 % (0-1); LYMPHOCYTES ABSOLUTE AUTO 0.89 K/mm3 (0.84-5.20); LYMPHOCYTES PERCENT AUTO 14 % (21-46); MONOCYTES ABSOLUTE AUTO 0.43 K/mm3 (0.16-1.47); MONOCYTES PERCENT AUTO 7 % (4-13); Mean Corpuscular HGB 28.8 pg (26.0-34.0); Mean Corpuscular HGB Conc 32.3 g/dL (31.5-36.5); Mean Corpuscular Volume 89 fL (80-100); Mean Platelet Volume 8.9 fL (9.1-12.4); NEUTROPHILS ABSOLUTE AUTO 4.85 K/mm3 (1.96-9.15); NEUTROPHILS PERCENT AUTO 75 % (41-73); Platelet Count 242 K/mm3 (150-400); RDW Standard Deviation 49.5 fL (35.1-46.3); Red Blood Cell Count 4.83 M/mm3 (3.80-5.20)
[2024-09-28 18:25] LABS: Albumin, Blood 3.9 g/dL (3.4-5.0); Albumin/Globulin Ratio 1.2 (0.8-1.8); Bilirubin, Total 0.4 mg/dL (0.1-1.0); Calcium, Blood 9.9 mg/dL (8.5-10.1); Creatinine, Blood 1.08 mg/dL (0.40-1.00); Globulin, Blood 3.2 g/dL (2.2-4.0); Potassium, Blood 3.7 mmol/L (3.5-5.5); Total Protein, Blood 7.1 g/dL (6.4-8.2)
[2024-09-28] MEDS ORDERED: HYDROcodone 5-APAP 325 TAB PO ONE (22:10)
[2024-09-28] MEDS ORDERED: Methocarbamol 500 MG Tab PO ONE (22:10)
[2024-09-28] MEDS ORDERED: Robaxin750 MG PO (22:13)
[2024-09-28] MEDS ORDERED: HYDR1TAB94 PO (22:13)
[2024-09-28] MEDS ORDERED: Lidocaine 4% 1 Patch TOP ONE (22:15)
[2024-09-28 22:28] VITALS: BP 101/70
== END 2024-09-28 22:28 | disposition home or self-care (01) ==
LOC: ER 17:16
PROVIDERS: Emergency Medicine
DX: S22.42XA Multiple fractures of ribs, left side, initial encounter for closed fracture (principal); X58.XXXA Exposure to other specified factors, initial encounter; I11.0 Hypertensive heart disease with heart failure; I50.9 Heart failure, unspecified; E11.9 Type 2 diabetes mellitus without complications; I25.10 Atherosclerotic heart disease of native coronary artery without angina pectoris; E78.5 Hyperlipidemia, unspecified; K21.9 Gastro-esophageal reflux disease without esophagitis; Z88.5 Allergy status to narcotic agent; Z88.2 Allergy status to sulfonamides; Z88.7 Allergy status to serum and vaccine; Z91.011 Allergy to milk products; Z79.899 Other long term (current) drug therapy; Z79.890 Hormone replacement therapy
CPT/HCPCS: 71101; 80053; 83880; 84484; 85025; 93005; 93010; 99284-25; A9270

== ENCOUNTER 2024-12-15 00:15 | Emergency (ER) | payer OTHER ==
[~2024-12-15] VITALS: Ht 162.6 cm; Wt 69.4 kg
[~2024-12-15 00:15] MED LIST changes: +Robaxin750 MG PO
[2024-12-15 00:43] VITALS: BP 126/78
[2024-12-15] MEDS ORDERED: Ketorolac Tromethamine 30mg Vial IM ONE (01:20)
[2024-12-15] MEDS ORDERED: Dexamethasone Sod Phos 10 MG/ML 1ML VIAL PO ONE (01:20)
[2024-12-15 01:25] LABS: CORONAVIRUS COVID-19 AG Negative (NEGATIVE); INFLUENZA A AG Negative (NEGATIVE); INFLUENZA B AG Negative (NEGATIVE)
== END 2024-12-15 01:47 | disposition home or self-care (01) ==
LOC: ER 00:15
PROVIDERS: Student in an Organized Health Care Education/Training Program
DX: B34.9 Viral infection, unspecified (principal); J06.9 Acute upper respiratory infection, unspecified; E78.5 Hyperlipidemia, unspecified; K21.9 Gastro-esophageal reflux disease without esophagitis; I11.0 Hypertensive heart disease with heart failure; I50.9 Heart failure, unspecified; Z88.7 Allergy status to serum and vaccine; Z91.011 Allergy to milk products; Z88.2 Allergy status to sulfonamides; Z88.5 Allergy status to narcotic agent; Z88.8 Allergy status to other drugs, medicaments and biological substances; Z79.02 Long term (current) use of antithrombotics/antiplatelets; Z79.83 Long term (current) use of bisphosphonates; Z79.899 Other long term (current) drug therapy; Z79.84 Long term (current) use of oral hypoglycemic drugs; Z88.9 Allergy status to unspecified drugs, medicaments and biological substances; Z79.890 Hormone replacement therapy
CPT/HCPCS: 71046; 87081; 87428-QW; 87430; 96372; 99283-25; J1100; J1885

== ENCOUNTER 2025-01-26 17:07 | Emergency (ER) | payer OTHER ==
[~2025-01-26] VITALS: Ht 162.6 cm; Wt 69.0 kg
[2025-01-26 17:41] LABS: BASOPHILS ABSOLUTE AUTO 0.05 K/mm3 (0.00-0.23); BASOPHILS PERCENT AUTO 1 % (0-2); EOSINOPHILS ABSOLUTE AUTO 0.14 K/mm3 (0.00-0.68); EOSINOPHILS PERCENT AUTO 2 % (0-6); Hematocrit 46.7 % (33.0-51.0); Hemoglobin 14.9 g/dL (11.5-16.0); IMMATURE GRAN ABSOLUTE AUTO 0.02 K/mm3 (0.00-0.10); IMMATURE GRAN PERCENT AUTO 0 % (0-1); LYMPHOCYTES ABSOLUTE AUTO 1.08 K/mm3 (0.84-5.20); LYMPHOCYTES PERCENT AUTO 18 % (21-46); MONOCYTES ABSOLUTE AUTO 0.45 K/mm3 (0.16-1.47); MONOCYTES PERCENT AUTO 7 % (4-13); Mean Corpuscular HGB 28.8 pg (26.0-34.0); Mean Corpuscular HGB Conc 31.9 g/dL (31.5-36.5); Mean Corpuscular Volume 90 fL (80-100); Mean Platelet Volume 8.9 fL (9.1-12.4); NEUTROPHILS ABSOLUTE AUTO 4.36 K/mm3 (1.96-9.15); NEUTROPHILS PERCENT AUTO 72 % (41-73); Platelet Count 244 K/mm3 (150-400); RDW Coefficient Variation 15.2 % (11.7-14.2); RDW Standard Deviation 50.9 fL (35.1-46.3); Red Blood Cell Count 5.17 M/mm3 (3.80-5.20)
[2025-01-26 17:48] LABS: International Normalized Ratio 0.93
[2025-01-26 17:49] LABS: Albumin, Blood 4.2 g/dL (3.4-5.0); Albumin/Globulin Ratio 1.4 (0.8-1.8); Bilirubin, Total 0.5 mg/dL (0.1-1.0); Bun/Creatinine Ratio 26.1 (12.0-20.0); Calcium, Blood 9.4 mg/dL (8.5-10.1); Creatinine, Blood 1.19 mg/dL (0.40-1.00); Potassium, Blood 4.1 mmol/L (3.5-5.5); Total Protein, Blood 7.2 g/dL (6.4-8.2)
[2025-01-26] MEDS ORDERED: Ketorolac Tromethamine 15mg Vial IV ONE (17:55)
[2025-01-26] MEDS ORDERED: FentaNYL Citrate 50 MCG/ML 2 ML Injection IV ONE (18:40)
[2025-01-26] MEDS ORDERED: NS 1,000 ML IV SCH (20:25)
[2025-01-26] MEDS ORDERED: Diphth,Pertuss(Acell),Tet Vac 0.5 ML VIAL IM ONE (21:50)
[2025-01-26 22:01] VITALS: BP 103/61
== END 2025-01-26 22:00 | disposition home or self-care (01) ==
LOC: ER 17:07
PROVIDERS: Student in an Organized Health Care Education/Training Program
DX: S51.012A Laceration without foreign body of left elbow, initial encounter (principal); S80.211A Abrasion, right knee, initial encounter; M25.572 Pain in left ankle and joints of left foot; M25.552 Pain in left hip; M79.645 Pain in left finger(s); I11.0 Hypertensive heart disease with heart failure; E78.5 Hyperlipidemia, unspecified; I50.9 Heart failure, unspecified; K21.9 Gastro-esophageal reflux disease without esophagitis; I25.10 Atherosclerotic heart disease of native coronary artery without angina pectoris; Z88.7 Allergy status to serum and vaccine; Z88.2 Allergy status to sulfonamides; Z91.011 Allergy to milk products; Z88.5 Allergy status to narcotic agent; Z88.8 Allergy status to other drugs, medicaments and biological substances; Z79.01 Long term (current) use of anticoagulants; Z79.84 Long term (current) use of oral hypoglycemic drugs; Z79.890 Hormone replacement therapy; Z79.899 Other long term (current) drug therapy; W10.9XXA Fall (on) (from) unspecified stairs and steps, initial encounter
CPT/HCPCS: 70450; 72125; 73080; 73130; 73502; 73610; 74177; 80053; 82947; 85025; 85610; 85730; 90471; 90715; 93005; 93010; 99284-25; J1885; J3010; J7030; Q9967

== ENCOUNTER 2025-02-14 10:04 | Emergency (ER) | payer OTHER ==
[~2025-02-14] VITALS: Ht 160 cm; Wt 72.6 kg
[2025-02-14 10:14] VITALS: BP 142/79
[2025-02-14] MEDS ORDERED: Mupirocin22 GM TOP (10:21)
== END 2025-02-14 11:29 | disposition home or self-care (01) ==
LOC: ER 10:04
DX: S63.602A Unspecified sprain of left thumb, initial encounter (principal); L03.114 Cellulitis of left upper limb; M19.90 Unspecified osteoarthritis, unspecified site; I11.0 Hypertensive heart disease with heart failure; I50.9 Heart failure, unspecified; K21.9 Gastro-esophageal reflux disease without esophagitis; E78.5 Hyperlipidemia, unspecified; W19.XXXA Unspecified fall, initial encounter; Z79.899 Other long term (current) drug therapy; Z88.7 Allergy status to serum and vaccine; Z88.2 Allergy status to sulfonamides; Z91.011 Allergy to milk products; Z88.5 Allergy status to narcotic agent
CPT/HCPCS: 99282

== ENCOUNTER 2025-03-21 12:13 | Emergency (ER) | payer OTHER ==
[~2025-03-21] VITALS: Ht 162.6 cm; Wt 72.6 kg
[~2025-03-21 12:13] MED LIST changes: +Mupirocin22 GM TOP
[2025-03-21 13:11] VITALS: BP 126/75
[2025-03-21] MEDS ORDERED: Voltaren100 GM TOP (14:24)
== END 2025-03-21 14:24 | disposition home or self-care (01) ==
LOC: ER 12:13
DX: M18.12 Unilateral primary osteoarthritis of first carpometacarpal joint, left hand (principal); K21.9 Gastro-esophageal reflux disease without esophagitis; Z79.899 Other long term (current) drug therapy; Z88.7 Allergy status to serum and vaccine; Z88.2 Allergy status to sulfonamides; Z91.011 Allergy to milk products; Z88.5 Allergy status to narcotic agent
CPT/HCPCS: 73140; 99283-25